=== PATIENT | male | born 1950 | race Caucasian/White ===

== ENCOUNTER 2016-10-10 20:55 | Emergency (ER) | payer MEDICARE | END 2016-10-10 22:15 | disposition home or self-care (01) | LOC: D.ER 20:55 | DX: B37.0 Candidal stomatitis (principal); I10 Essential (primary) hypertension ==

== ENCOUNTER 2017-04-30 20:24 | Emergency (ER) | payer MEDICARE | END 2017-04-30 22:00 | disposition home or self-care (01) | LOC: D.ER 20:24 | DX: F41.9 Anxiety disorder, unspecified (principal); I10 Essential (primary) hypertension ==

== ENCOUNTER 2018-03-18 19:02 | Emergency (ER) | payer MEDICARE, BC ==
[~2018-03-18] VITALS: Ht 177.8 cm; Wt 90.9 kg
[2018-03-18 19:18] VITALS: Ht 177.8 cm; Wt 90.9 kg
[2018-03-18] MEDS ORDERED: PRINIVIL20 MG PO (19:19)
[2018-03-18] MEDS ORDERED: OMEPRAZOLE20 M1 (19:20)
[2018-03-18] MEDS ORDERED: CATAPRES0.1 MG (19:20)
[2018-03-18] MEDS ORDERED: NORVASC5 MG PO (20:32)
[2018-03-18] MEDS ORDERED: ULTRAM50 MG PO (20:32)
[2018-03-18 21:30] VITALS: BP 122/84
== END 2018-03-18 21:08 | disposition home or self-care (01) ==
LOC: D.ER 19:02
DX: I10 Essential (primary) hypertension (principal); M50.30 Other cervical disc degeneration, unspecified cervical region; K21.9 Gastro-esophageal reflux disease without esophagitis

== ENCOUNTER 2019-05-17 20:58 | Emergency (ER) | payer MEDICARE, BC ==
[~2019-05-17] VITALS: Ht 177.8 cm; Wt 90.9 kg
[~2019-05-17 20:58] MED LIST: CATAPRES0.1 MG; NORVASC5 MG PO; OMEPRAZOLE20 M1; PRINIVIL20 MG PO; ULTRAM50 MG PO
[2019-05-17 21:05] VITALS: Ht 177.8 cm; Wt 90.9 kg
[2019-05-17] MEDS ORDERED: MUCINEX DM ER1 EAC1 PO (21:49)
[2019-05-17 22:44] VITALS: BP 156/82
== END 2019-05-17 22:44 | disposition home or self-care (01) ==
LOC: D.ER 20:58
DX: J06.9 Acute upper respiratory infection, unspecified (principal); J40 Bronchitis, not specified as acute or chronic; I10 Essential (primary) hypertension

== ENCOUNTER 2019-06-21 21:27 | Emergency (ER) | payer MEDICARE, BC ==
[~2019-06-21] VITALS: Ht 177.8 cm; Wt 90.9 kg
[~2019-06-21 21:27] MED LIST changes: +MUCINEX DM ER1 EAC1 PO
[2019-06-21 21:36] VITALS: Ht 177.8 cm; Wt 90.9 kg
[2019-06-21] MEDS ORDERED: COZAAR50 MG PO (21:38)
[2019-06-21] MEDS ORDERED: ROBITUSSIN DM 110 ML PO (21:45)
[2019-06-21 22:11] LABS: BASOPHILS 0.3 % (0-2); EOSINOPHILS 1.5 % (0-7); HEMATOCRIT 43.6 % (42.0-54.0); HEMOGLOBIN 14.7 g/dL (13.5-17.5); IMMATURE GRANULOCYTES 0.6 % (0-5); LYMPHOCYTES 27.9 % (15-50); MCH 29.3 pg (26.0-34.0); MCHC 33.7 g/dL (31.0-37.0); MCV 86.9 fL (80.0-100.0); MEAN PLATELET VOLUME 10.8 fL (7.4-10.4); MONOCYTES 8.9 % (2-11); NEUTROPHILS 60.8 % (40-80); PLATELET COUNT 192 10x3/uL (130-400); RBC 5.02 10x6/uL (4.20-6.10); RDW 14.3 % (11.5-14.5); WBC 6.8 10x3/uL (4.8-10.8)
[2019-06-21] MEDS ORDERED: AUGMENTIN 875-11 TAB PO (22:18)
[2019-06-21 22:23] LABS: CALC OSMOLALITY 279 mosm/kg (275-300); CALCIUM 8.6 mg/dL (8.5-10.1); CARBON DIOXIDE 29.3 mmol/L (21.0-32.0); CHLORIDE - SERUM 104 mmol/L (98-107); CREATININE - SERUM 1.3 mg/dL (0.6-1.3); GLUCOSE 111 mg/dL (74-106); POTASSIUM - SERUM 4.4 mmol/L (3.5-5.1); SODIUM 140 mmol/L (136-145); UREA NITROGEN 12 mg/dL (7-18); eGFR NON AFRICAN AMERICAN 58 mL/min (90-120)
[2019-06-21 22:36] LABS: ALBUMIN 3.7 g/dL (3.4-5.0); ALKALINE PHOSPHATASE 100 U/L (46-116); ALT (SGPT) 50 U/L (10-68); BILIRUBIN - TOTAL 0.24 mg/dL (0.2-1.3); PRO BNP 11 pg/mL (0-125); PROTEIN - SERUM 7.2 g/dL (6.4-8.2); TROPONIN-I < 0.017 ng/mL (0.000-0.060)
[2019-06-21] MEDS ORDERED: FLUTICASONE PRO16 GM NASAL (22:45)
[2019-06-21 22:49] VITALS: BP 139/89
[2019-06-21] MEDS ORDERED: NYSTATIN ORAL SU5 ML PO (22:54)
[2019-06-21] MEDS ORDERED: DIFLUCAN150 MG PO (22:55)
== END 2019-06-21 22:56 | disposition home or self-care (01) ==
LOC: D.ER 21:27
PROVIDERS: Family Medicine
DX: J20.9 Acute bronchitis, unspecified (principal); I10 Essential (primary) hypertension; K21.9 Gastro-esophageal reflux disease without esophagitis

== ENCOUNTER 2020-02-25 18:23 | Emergency (ER) | payer MEDICARE, BC ==
[~2020-02-25] VITALS: Ht 177.8 cm; Wt 90.9 kg
[~2020-02-25 18:23] MED LIST changes: +AUGMENTIN 875-11 TAB PO; +COZAAR50 MG PO; +DIFLUCAN150 MG PO; +FLUTICASONE PRO16 GM NASAL; +NYSTATIN ORAL SU5 ML PO; +ROBITUSSIN DM 110 ML PO
[2020-02-25 18:31] VITALS: Ht 177.8 cm; Wt 90.9 kg
[2020-02-25] MEDS ORDERED: COZAAR100 MG PO (18:34)
[2020-02-25] MEDS ORDERED: CATAPRES0.1 MG PO ×2 (18:35)
[2020-02-25 19:59] LABS: BASOPHILS 0.2 % (0-2); EOSINOPHILS 1.1 % (0-7); HEMATOCRIT 40.8 % (42.0-54.0); HEMOGLOBIN 13.8 g/dL (13.5-17.5); IMMATURE GRANULOCYTES 0.7 % (0-5); LYMPHOCYTES 18.2 % (15-50); MCH 29.6 pg (26.0-34.0); MCHC 33.8 g/dL (31.0-37.0); MCV 87.6 fL (80.0-100.0); MEAN PLATELET VOLUME 11.9 fL (7.4-10.4); MONOCYTES 5.2 % (2-11); NEUTROPHILS 74.6 % (40-80); RBC 4.66 10x6/uL (4.20-6.10); RDW 13.9 % (11.5-14.5); WBC 10.9 10x3/uL (4.8-10.8)
[2020-02-25 20:03] LABS: PLATELET COUNT 232 10x3/uL (130-400)
[2020-02-25 20:10] LABS: APTT 25.7 SECONDS (22.8-39.4); INR 0.9 (0.85-1.17); PROTIME 12.2 SECONDS (11.6-15.0)
[2020-02-25 20:13] LABS: CALC OSMOLALITY 279 mosm/kg (275-300); CALCIUM 8.4 mg/dL (8.5-10.1); CARBON DIOXIDE 22.9 mmol/L (21.0-32.0); CHLORIDE - SERUM 103 mmol/L (98-107); CREATININE - SERUM 1.2 mg/dL (0.6-1.3); GLUCOSE 162 mg/dL (74-106); POTASSIUM - SERUM 3.4 mmol/L (3.5-5.1); SODIUM 138 mmol/L (136-145); UREA NITROGEN 13 mg/dL (7-18); eGFR NON AFRICAN AMERICAN 64 mL/min (90-120)
[2020-02-25 20:28] LABS: ALBUMIN 3.3 g/dL (3.4-5.0); ALKALINE PHOSPHATASE 86 U/L (30-120); ALT (SGPT) 41 U/L (10-68); BILIRUBIN - TOTAL 0.42 mg/dL (0.2-1.3); CKMB 1.8 U/L (0.0-3.6); CREATINE KINASE 197 UL (21-232); PROTEIN - SERUM 6.5 g/dL (6.4-8.2)
[2020-02-25 20:30] LABS: TROPONIN-I < 0.017 ng/mL (0.000-0.060)
[2020-02-25] MEDS ORDERED: PROAIR HFA8.5 G1 INH (20:51)
[2020-02-25 21:50] VITALS: BP 136/78
== END 2020-02-25 22:00 | disposition home or self-care (01) ==
LOC: D.ER 18:23
PROVIDERS: Family Medicine
DX: J40 Bronchitis, not specified as acute or chronic (principal); R68.89 Other general symptoms and signs; I10 Essential (primary) hypertension